=== PATIENT | female | born 1990 | race Caucasian/White ===

== ENCOUNTER 2016-10-12 16:32 | Inpatient (IN) | payer BC ==
[~2016-10-12] VITALS: Ht 177.8 cm; Wt 60.4 kg
[2016-10-12] MEDS ORDERED: SODIUM CHLORIDE FLUSH 10ML SYR IVF ONE ×2 (17:30→19:30)
[2016-10-12 17:48] LABS: HEMATOCRIT 41.2 % (34.6-47.8); HEMOGLOBIN 13.4 g/dL (11.7-16.4); WHITE BLOOD COUNT 9.2 x10^3/uL (3.4-10)
[2016-10-12 17:56] LABS: ASPARTATE AMINO TRANSFERASE 11 U/L (15-37); BLOOD UREA NITROGEN 9 mg/dL (7-18)
[2016-10-12] MEDS ORDERED: LISD20CA4 PO (19:20)
[2016-10-12] MEDS ORDERED: LORazepam 1MG TABLET ONE (22:55)
[2016-10-12] MEDS ORDERED: DOCUSATE 100 MG CAPSULE PO PRN (23:00)
[2016-10-12] MEDS ORDERED: BISACODYL 10 MG SUPP PR PRN (23:00)
[2016-10-12] MEDS ORDERED: ENOXAPARIN 40 MG/0.4 ML SQ SCH (23:00)
[2016-10-12] MEDS ORDERED: LORazepam 1MG TABLET PO PRN ×2 (23:00)
[2016-10-12] MEDS ORDERED: POLYETHYLENE GLYCOL 17 GM PACKET PO PRN (23:00)
[2016-10-12] MEDS ORDERED: ONDANSETRON 2MG/ML, 2ML IVPush PRN (23:00)
[2016-10-12] MEDS ORDERED: ZOLPIDEM 5MG TABLET PO PRN (23:00)
[2016-10-13] MEDS ORDERED: ENOXAPARIN 40 MG/0.4 ML ONE (00:53)
[2016-10-13 09:00] LABS: DAU SCREEN DISCLAIMER
[2016-10-13] MEDS ORDERED: ACETAMINOPHEN 325 MG TABLET ONE (12:04)
[2016-10-13] MEDS: ACETAMINOPHEN 325 MG TABLET PO PRN ×2 (12:06→16:58)
[2016-10-13 13:31] VITALS: BP 109/71
== END 2016-10-13 17:40 | disposition left against medical advice (07) | DRG 948 ==
LOC: ED 19:36 → SUATTDRO 22:22 → EDIP 22:56 → 4EST 10-13 13:25
PROVIDERS: ATTEND Hospitalist
DX: R53.1 Weakness (principal); Z87.820 Personal history of traumatic brain injury
CPT/HCPCS: 36415; 70450; 70551; 80053; 80307; 81001; 82550; 83735; 84100; 84439; 84443; 84703; 85025; 85651; 86140; 86141; 93005; 99285; J1650